=== PATIENT | female | born 1980 | race Caucasian/White ===

== ENCOUNTER 2017-04-30 09:24 | Emergency (ER) | payer OTHER ==
[~2017-04-30] VITALS: Ht 175.3 cm; Wt 56.7 kg
--- NOTE | 2017-04-30 09:39 | NUR ---
[facility] x[employer] officers are at bedside.
--- NOTE | 2017-04-30 09:40 | NUR ---
Patient is for discharge in 15-20 minutes per MD. Patient refuses any medicines at this time.
--- NOTE | 2017-04-30 10:25 | NUR ---
Patient discharged to home in stable conditon. Written and verbal after care instructions given to patient. Patient verbalizes understanding of instructions. Patient left ER with a male adult,+steady gait.
== END 2017-04-30 10:27 | disposition home or self-care (01) ==
LOC: ER 09:24
DX: Z04.1 Encounter for examination and observation following transport accident (principal); V89.2XXA Person injured in unspecified motor-vehicle accident, traffic, initial encounter; Y93.89 Activity, other specified; Y99.8 Other external cause status; Y92.410 Unspecified street and highway as the place of occurrence of the external cause
CPT/HCPCS: A4663